=== PATIENT | male | born 1960 | race Caucasian/White ===

== ENCOUNTER → 2023-09-28 08:35 | Outpatient (REF) | payer OTHER, SELFPAY | LOC: RCS 08:35 | PROVIDERS: ATTENDING PHYSICIAN Internal Medicine Cardiovascular Disease; FAMILY PHYSICIAN Student in an Organized Health Care Education/Training Program | DX: R06.02 Shortness of breath (principal) | CPT/HCPCS: 93017; 93350 ==

== ENCOUNTER 2025-03-06 08:40 | Emergency (ER) | payer OTHER, SELFPAY ==
[2025-03-06 08:54] VITALS: BP 145/78
[2025-03-06 10:01] VITALS: BMI 29.7
[2025-03-06 10:17] VITALS: BP 122/69
[2025-03-06 11:00] VITALS: BP 123/72
[2025-03-06 11:29] LABS: Urine Character Clear (Clear)
[2025-03-06 11:43] LABS: Hematocrit 36.0 % (39.0-52.0); Hemoglobin 13.3 g/dL (13.0-18.0); Mean Corp Hgb Conc. 36.9 g/dL (33.0-37.0); Mean Corpuscular Volume 89.1 fL (80.0-94.0); Nucleated Red Blood Cells % 0 % (-); Platelet Count 157 10^3/uL (130-400); Red Cell Dist. Width 15.7 % (11.5-14.5)
[2025-03-06 11:49] LABS: ALT (SGPT) 23 U/L (0-50); AST (SGOT) 20 U/L (17-59); Albumin 4.8 g/dl (3.5-5.0); Alkaline Phosphatase 59 U/L (38-126); Blood Urea Nitrogen 18 mg/dl (9-20); Calcium 9.9 mg/dl (8.4-10.2); Carbon Dioxide 25 mmol/L (22-30); Chloride 105 mmol/L (98-107); Estimated Creatinine Clearance 103 ml/min; Glucose 112 mg/dl (70-99); Lipase 90 U/L (23-300); Potassium 3.5 mmol/L (3.5-5.1); Sodium 138 mmol/L (135-145); Total Protein 7.0 g/dl (6.3-8.2); eGFR > 60.00
[2025-03-06 11:59] LABS: Troponin I 0.012 ng/ml
[2025-03-06 12:00] VITALS: BP 113/63
[2025-03-06 12:05] LABS: Urine Red Blood Cell 0-2 /HPF (0-2)
--- NOTE | 2025-03-06 13:24 | ED.GENMED ---
History of Present Illness
General
Chief Complaint: Abdominal Symptoms
Source: patient and spouse
Exam Limitations: none
Time Seen by Provider: 03/06/25 09:43
Nursing documentation reviewed up to this point in time: agreed with
History of Present Illness
History of Present Illness:
64-year-old male presenting to the emergency department today with concerns of abdominal pain earlier this morning few hours prior to arrival. Associated nausea vomiting at home and vomited 1 time upon arrival to the ER. Is now asymptomatic during
my assessment. No ongoing nausea. No reproducible pain to palpation. No urinary symptoms no fevers no chest pain or shortness of breath
Past History
Social History
Tobacco: Non-smoker
Personal:
Review of Systems
Review of Systems
Allergies reviewed?: Yes
All Other Systems: ROS reviewed and negative except as documented in HPI and ROS
Phy Exam
Physical Exam
Physical Exam:
GENERAL: Alert , in no apparent distress
EYE: pupils equal and reactive
NECK: Supple, no significant adenopathy.
ENT: o/p clr, mmm.
CARDIAC: Regular rate and rhythm .
LUNGS: Clear breath sounds bilaterally, no acute respiratory distress, no wheezes/rales/rhonchi
ABDOMEN: Soft, without focal tenderness, no r/g, no cvat
NEUROLOGICAL: Alert and oriented, no focal neuro deficits
SKIN: Warm and dry, skin intact.
MUSCULOSKELETAL: No edema, well perfused.
PSYCH: Normal and appropriate interaction.
Course
Orders/Labs/Results
Orders:
Orders
03/06/25 08:56
Electrocardiogram (*1) Urgent
Reason for Study: Abdominal Pain
EKG- Treatment ONCE
03/06/25 11:12
Complete Blood Count/With Diff Urgent
Comprehensive Metabolic Panel Urgent
Lipase Urgent
Troponin I Urgent
03/06/25 11:19
Urinalysis Reflex To Culture Urgent
Date Specimen was Collected: 03/06/25
Time Specimen was Collected: 11:18
Urine Microscopic Reflex Cult Urgent
Urine Culture Urgent
GENESIS Source: U
Specimen Description:
Date Specimen was Collected: 03/06/25
Time Specimen was Collected: 11:18
Abnormal Lab Results
03/06/25 03/06/25
11:12 11:19
WBC 11.1 H 10^3/uL
(4.8-10.8)
RBC 4.04 L 10^6/uL
(4.70-6.10)
Hct 36.0 L %
(39.0-52.0)
MCH 32.9 H pg
(27.0-31.0)
RDW 15.7 H %
(11.5-14.5)
MPV 11.2 H fL
(7.4-10.4)
Abs Immat Gran (auto) 0.1 H 10^3/uL
(0-0.05)
Absolute Neuts (auto) 10.0 H 10^3/uL
(1.4-6.5)
Absolute Lymphs (auto) 0.5 L 10^3/uL
(1.2-3.4)
Immature Gran % 0.9 H %
(0-0.5)
Neutrophils % 90.3 H %
(42.2-75.2)
Lymphocytes % 4.2 L %
(20.5-51.1)
Glucose 112 H mg/dl
(70-99)
Total Bilirubin 2.1 H mg/dl
(0.2-1.3)
Urine Ketones 2+ A
(Negative)
Leukocyte Esterase Rfl 1+ A
(Negative)
Urine WBC (Reflex) 11-15 A /HPF
(0-5)
Urine Bacteria (Reflex) Few A
(Negative)
Urine Albumin (Reflex) 1+ A
(Neg - Trace)
03/06/25 11:12
03/06/25 11:12
Vital Signs
Initial and Last Documented VS:
Initial Vital Signs
Temp Pulse Resp BP Pulse Ox
98.2 F 79 16 145/78 98
03/06/25 08:54 03/06/25 08:54 03/06/25 08:54 03/06/25 08:54 03/06/25 08:54
Last Documented Vital Signs
Temp Pulse Resp BP Pulse Ox
98.2 F 66 19 113/63 94
03/06/25 08:54 03/06/25 12:15 03/06/25 12:15 03/06/25 12:00 03/06/25 13:26
MDM/Problems Addressed
MDM/Problems Addressed:
64-year-old male presenting to the emergency department today with concerns of abdominal pain nausea and vomiting. Fully resolved prior to my assessment. Symptoms started few hours prior to arrival. EKG was normal troponin was drawn to ensure no
referred pain this was also negative and drawn at least 3 hours after the onset of symptoms. Labs showing slightly elevated bilirubin level but no significant discomfort to palpation and no right upper quadrant pain at this point. Also slight
elevated white count but did vomit just prior to drawing labs. At this point patient was monitored here for multiple hours with no ongoing symptoms able to eat and drink without any symptoms. Stable for outpatient follow-up. Return precautions
given.
*Pulse Oximetry
SaO2: 94
Oxygen Mode of Delivery: Room air
Patient hypoxic: no (94)
*Critical Care Note
Total Time (30-74mins, 75-104mins- exclusive of procedures): Not Applicable
ED Attending Note
-
Portions of this chart may have been created with voice recognition software.� Occasional wrong word or��sound alike� substitutions may have occurred due to the inherent limitations of voice recognition software.
Discharge Plan
Departure
Patient Disposition: Home (Routine Discharge)
Date of Disposition: 03/06/25
Time of Disposition: 13:24
Patient with high blood pressure during this ER visit?: No
Condition: Good
Covid-19: Not Applicable
Discharge Problem:
Abdominal pain
Instructions: Abdominal Pain
Prescriptions:
No Action
oxycodone-acetaminophen 5 MG/325 MG tablet
1 - 2 tab PO .Q4-6HPRN PRN (Reason: pain) Qty: 20 0RF
Referrals:
Derrek Cao MD [Active, Gastroenterology] - Follow up in 10 days
Bonny Patel PA-C [Family Provider, Family Practice]
Activity Restrictions/Additional Instructions:
You came to the emergency department today after an episode of abdominal pain nausea and vomiting. Here you had a reassuring assessment. Please follow closely with your primary care doctor. Return for any worsening, new or concerning symptoms.
Interventions
Interventions:
*Risk Screen - Suicide Last Done: 03/06/25 08:54
*General Assessment Last Done: 03/06/25 10:01
*Neglect/Abuse Screening Last Done: 03/06/25 08:54
*ED- Fall Risk Assessment Last Done: 03/06/25 10:01
*ED COVID-19 Vaccine History Last Done: 03/06/25 10:01
JW-Wpswbc-Qlstifduof Assessment Last Done: 03/06/25 10:01
Discharge Date and Time
Print Language: MONTSERRATIAN
== END 2025-03-06 13:44 | disposition home or self-care (01) ==
LOC: EMR 08:40
PROVIDERS: Physician Assistant; EMERGENCY PHYSICIAN Emergency Medicine; FAMILY PHYSICIAN Physician Assistant Medical
DX: R10.11 Right upper quadrant pain (principal)
CPT/HCPCS: 99284; 80053; 81003; 81015; 83690; 84484; 85025; 87077; 87086; 93005